=== PATIENT | male | born 1965 | race Caucasian/White ===

== ENCOUNTER 2017-08-06 06:05 | Emergency (ER) | payer OTHER ==
[~2017-08-06] VITALS: Ht 172.7 cm; Wt 74.8 kg
[~2017-08-06 06:05] MED LIST: AEROCHAMBER1 DEV IH; ALBUTEROL2 PUFFS/17 IN; AMOXICILLIN 50500 MG PO; ANDROGEL1.62% TP; AZITHROMYCIN250 M1 PO; DDAVP NS; LORTAB 5/500 501 TAB PO; PREDNISONE 5MG.5 MG PO; PREDNISONE20 MG PO; SYNTHROID0.088 M3 PO; TRAMADOL 50MG T50 MG PO; VICODIN 5/6 EACH/PAK OR; VOLTAREN75 MG PO; [UNRECOGNIZED DRUG - OTHER] NS
--- OUTSIDE RECORDS SUMMARY | 2017-08-06 06:17 | External Medical Summary Rpt | CCD ---
Author Author [employer] Organization [employer] Address Unknown Phone Unavailable Purpose Continuity of Care Document - through 2016
--- OUTSIDE RECORDS SUMMARY | 2017-08-06 06:17 | External Medical Summary Rpt | CCD ---
Author Author [facility] Address Unknown Phone Purpose Continuity of Care Document - through 2016
--- OUTSIDE RECORDS SUMMARY | 2017-08-06 06:19 | External Medical Summary Rpt ---
Author Author MAIRA Villegas, MAIRA Villegas Organization [employer] Address Unknown Phone Unavailable
--- OUTSIDE RECORDS SUMMARY | 2017-08-06 06:19 | External Medical Summary Rpt | CCD ---
Demographics Preferred Language Wolof Marital Status Unknown Baptism Affiliation Unknown Race Unknown Ethnic Group Unknown Author Author , MAIRA Organization [facility] Address Unknown Phone Immunization Unable to retrieve immunization data due to connection failure with Immunization Registry. Please try again later.
--- OUTSIDE RECORDS SUMMARY | 2017-08-06 06:19 | External Medical Summary Rpt | CCD ---
Demographics Preferred Language Turkmen Marital Status Unknown Druze Affiliation Unknown Race Unknown Ethnic Group Unknown Author Author , [facility] Organization [facility] Address Unknown Phone Immunization Unable to retrieve immunization data due to connection failure with Immunization Registry. Please try again later.
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
[2017-08-06] MEDS ORDERED: AUGMENTIN 875-1 EACH PO (07:02)
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
[2017-08-06 07:50] LABS: LYMPH # 2.8 K/mm3 (0.7-4.5); LYMPH % 18.6 % (10-50)
[2017-08-06 07:58] LABS: HEMOGLOBIN 13.7 g/dL (14.1-18.0)
[2017-08-06 08:31] VITALS: BP 106/41
== END 2017-08-06 08:32 | disposition home or self-care (01) ==
LOC: ER 06:05
PROVIDERS: Emergency Medicine
PROC: 0CQ0XZZ Repair Upper Lip, External Approach (ICD-10-PCS; principal; 2017-08-06)
DX: S01.511A Laceration without foreign body of lip, initial encounter (principal); S40.022A Contusion of left upper arm, initial encounter; S02.5XXA Fracture of tooth (traumatic), initial encounter for closed fracture; V89.2XXA Person injured in unspecified motor-vehicle accident, traffic, initial encounter; J18.1 Lobar pneumonia, unspecified organism; Z23 Encounter for immunization; Z87.891 Personal history of nicotine dependence; E11.9 Type 2 diabetes mellitus without complications